=== PATIENT | female | born 1990 | race Caucasian/White ===

== ENCOUNTER 2016-09-07 11:14 | Emergency (ER) | payer OTHER ==
[2016-09-07 12:06] VITALS: BP 140/95
[2016-09-07] MEDS ORDERED: Ketorolac INJ* 60 MG/2 ML VIAL IM ONE (12:33)
--- NOTE | 2016-09-07 12:57 | RAD ---
Indication: Acute on chronic back pain. 2 views of lumbar spine demonstrate vertebral bodies to be normal in height. Disc spaces all well-preserved. Pedicles appear intact. IMPRESSION: No fracture of the lumbar spine is noted. Straightening of the normal lordosis.
--- NOTE | 2016-09-07 14:06 | UC ---
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 DIAGNOSED WITH COMPLICATIONS OF L3 L4 L5. FEEL LIKE SHE AGGRIVATED THIS INJURY WHILE STANDING ON STOOL AND REACHING YESTERDAY. NO LOSS OF CONTROL OF BLADDER OR BOWELS. CURRENTLY HAVING PERIOD. - History of Current Complaint Chief Complaint: UCBackPain Stated Complaint: BACK INJURY REAGGREVATION WC Time Seen by Provider: 09/07/16 12:20 Hx Obtained From: Patient Hx Last Menstrual Period: 09/06/16 Onset/Duration: Sudden Onset, Lasting Days, Still Present Timing: Lasting Days Severity Initially: Moderate Severity Currently: Moderate Pain Intensity: 5 Pain Scale Used: 0-10 Numeric Back Pain: Is Discrete @ Character: Spasmodic, Stiffness Aggravating: Movement, Lifting, Bending Alleviating: Rest, Position Associated Signs And Symptoms: Positive: Pain with Weight Bearing. Negative: Abdominal Pain, Flank Pain, Bladder Incontinence, Bowel Incontinence - Risk Factors AAA Risk Factors: Negative TAD Risk Factors: Negative Cauda Equina Risk Factors: Negative Epidural Abscess Risk Factors: Negative - Allergies/Home Medications Allergies/Adverse Reactions: Allergies Allergy/AdvReac Type Severity Reaction Status Date / Time No Known Allergies Allergy Verified 09/07/16 12:06 Home Medications: Home Medications Cyclobenzaprine TAB* [Flexeril 10 MG TAB*] 10 mg PO TID PRN 09/07/16 [History Confirmed 09/07/16] Meloxicam(NF) [Mobic(NF)] 7.5 mg PO DAILY 09/07/16 [History Confirmed 09/07/16] hydrOXYzine HCL TAB* [Atarax 25 MG TAB*] 25 mg PO BEDTIME PRN 09/07/16 [History Confirmed 09/07/16] PMH/Surg Hx/FS Hx/Imm Hx Previously Healthy: Yes - Surgical History Surgical History: None - Family History Known Family History: Negative: Renal Disease - Social History Occupation: Employed Full-time Lives: With Family Alcohol Use: Occasionally Substance Use Type: None Smoking Status (MU): Former Smoker Have You Smoked in the Last Year: Yes When Did the Patient Quit Smoking/Using Tobacco: 5 months ago - Immunization History Most Recent Influenza Vaccination: [id number] Review of Systems Constitutional: Negative Skin: Negative Eyes: Negative ENT: Negative Respiratory: Negative Cardiovascular: Negative Gastrointestinal: Negative Genitourinary: Negative Motor: Negative Neurovascular: Negative Musculoskeletal: Arthralgia, Myalgia Neurological: Negative Psychological: Negative All Other Systems Reviewed And Are Negative: Yes Physical Exam Triage Information Reviewed: Yes Appearance: Well-Appearing, No Pain Distress, Well-Nourished Vital Signs: Initial Vital Signs Temp 98.6 F 09/07/16 11:57 Pulse 86 09/07/16 11:57 Resp 17 09/07/16 11:57 BP 140/95 09/07/16 11:57 Pulse Ox 99 09/07/16 11:57 Vital Signs Reviewed: Yes Eye Exam: Normal ENT Exam: Normal ENT: Positive: Normal ENT inspection Dental Exam: Normal Neck exam: Normal Neck: Positive: Supple, Nontender, No Lymphadenopathy Respiratory Exam: Normal Respiratory: Positive: Chest non-tender, Lungs clear, Normal breath sounds, No respiratory distress, No accessory muscle use Cardiovascular Exam: Normal Cardiovascular: Positive: RRR, No Murmur, Pulses Normal Abdominal Exam: Normal Abdomen Description: Positive: Nontender, No Organomegaly Musculoskeletal Exam: Normal Musculoskeletal: Positive: Strength Intact, ROM Intact Neurological Exam: Normal Psychological Exam: Normal Skin Exam: Normal Back Pain Course/Dx - Differential Dx/Diagnosis Differential Diagnosis/HQI/PQRI: Herniated Disc, Strain, Sprain Provider Diagnoses: ACUTE LOW BACK STRAIN. CHRONIC BACK PAIN Discharge - Discharge Plan Condition: Stable Disposition: HOME Prescriptions: Cyclobenzaprine TAB* [Flexeril 10 MG TAB*] 10 mg PO BID PRN #6 tab PRN Reason: Spasms traMADol TAB* [Ultram*] 50 mg PO Q8H PRN #12 tab MDD THREE TABS PRN Reason: Pain Patient Education Materials: Acute Low Back Pain (ED), Muscle Spasm (ED), Chronic Back Pain (ED) Referrals: Adriana Miguel NP [Primary Care Provider] -
== END 2016-09-07 13:40 | disposition home or self-care (01) ==
LOC: UCCORT 11:14
DX: S39.012S Strain of muscle, fascia and tendon of lower back, sequela (principal); X50.1XXS Overexertion from prolonged static or awkward postures, sequela; G89.21 Chronic pain due to trauma; Z87.891 Personal history of nicotine dependence
CPT/HCPCS: 72100; 81003; 99212; G0463; J1885

== ENCOUNTER 2017-11-11 09:50 | Emergency (ER) | payer SELFPAY ==
[2017-11-11 10:07] VITALS: BP 142/90
--- NOTE | 2017-11-11 11:00 | UC ---
Back Pain HPI - HPI Summary HPI Summary: 27 yo female requests work note to return to work has chronic back pain due to herniated discs last week she acutely worsened and missed three days of work returned to work and was told she needs a note to return currently no sciatica - History of Current Complaint Chief Complaint: UCBackPain Stated Complaint: PULLED MUSCLE Time Seen by Provider: 11/11/17 10:33 Hx Obtained From: Patient Hx Last Menstrual Period: UNKNOWN- MIRENA Onset/Duration: Gradual Onset Timing: Constant Severity Initially: Moderate Severity Currently: Mild Pain Intensity: 2 Pain Scale Used: 0-10 Numeric Back Pain: Is Diffuse Character: Throbbing, Spasmodic Aggravating Factor(s): Movement Alleviating Factor(s): Rest Associated Signs And Symptoms: Positive: Negative Related History: Previous Back Injury - Allergies/Home Medications Allergies/Adverse Reactions: Allergies Allergy/AdvReac Type Severity Reaction Status Date / Time No Known Allergies Allergy Verified 09/07/16 12:06 Home Medications: Home Medications Levonorgestrel (Iud) [Mirena IUD] 1 each TOPICAL DAILY 11/11/17 [History Confirmed 11/11/17] PMH/Surg Hx/FS Hx/Imm Hx Previously Healthy: Yes - Surgical History Surgical History: None - Family History Known Family History: Positive: Hypertension Negative: Renal Disease - Social History Alcohol Use: Occasionally Substance Use Type: None Smoking Status (MU): Former Smoker Have You Smoked in the Last Year: Yes When Did the Patient Quit Smoking/Using Tobacco: 5 months ago Household Exposure Type: Cigarettes - Immunization History Most Recent Influenza Vaccination: [id number] Review of Systems Constitutional: Negative Skin: Negative Eyes: Negative ENT: Negative Respiratory: Negative Cardiovascular: Negative Gastrointestinal: Negative Genitourinary: Negative Motor: Negative Neurovascular: Negative Musculoskeletal: Myalgia Neurological: Negative Psychological: Negative Is Patient Immunocompromised?: No All Other Systems Reviewed And Are Negative: Yes Physical Exam Triage Information Reviewed: Yes Appearance: Well-Appearing, No Pain Distress, Well-Nourished Vital Signs: Initial Vital Signs Temp 99.1 F 11/11/17 10:04 Pulse 100 11/11/17 10:04 Resp 16 11/11/17 10:04 BP 142/90 11/11/17 10:04 Pulse Ox 100 11/11/17 10:04 Vital Signs Reviewed: Yes Eyes: Positive: Conjunctiva Clear ENT: Positive: Hearing grossly normal. Negative: Nasal congestion, Nasal drainage, Trismus, Muffled voice, Hoarse voice Neck: Positive: Supple, Nontender Respiratory: Positive: Lungs clear, Normal breath sounds, No respiratory distress Cardiovascular: Positive: RRR, No Murmur Musculoskeletal: Positive: ROM Intact, No Edema, Other: - back FROM, -SLR Neurological: Positive: Alert, Muscle Tone Normal, Other: - senation intact and symmetrical DTRs Psychological Exam: Normal Skin Exam: Normal Back Pain Course/Dx - Differential Dx/Diagnosis Provider Diagnoses: lumbar strain. resolved Discharge - Sign-Out/Discharge Documenting (check all that apply): Discharge/Admit/Transfer - Discharge Plan Condition: Stable Disposition: HOME Patient Education Materials: Chronic Back Pain (ED) Forms: *Work Release Referrals: No Primary Care Phys,NOPCP [Primary Care Provider] - - Billing Disposition and Condition Condition: STABLE Disposition: HOME
== END 2017-11-11 10:57 | disposition home or self-care (01) ==
LOC: UCCORT 09:50
DX: S39.012A Strain of muscle, fascia and tendon of lower back, initial encounter (principal); X58.XXXA Exposure to other specified factors, initial encounter; Y93.9 Activity, unspecified; Y92.9 Unspecified place or not applicable; Z87.891 Personal history of nicotine dependence
CPT/HCPCS: 99211; G0463